=== PATIENT | female | born 1970 | race Two or more races ===

== ENCOUNTER 2019-07-17 11:10 | Day surgery (SDC) | payer OTHER ==
[~2019-07-17 11:10] MED LIST: ATENOLOL25 MG PO; AZILECT1 MG PO; CARDIDOPA PO; EFEXOR PO; SYNTH PO
== END 2019-07-17 18:15 | disposition home or self-care (01) ==
LOC: CIR.AMB 11:10
DX: M75.112 Incomplete rotator cuff tear or rupture of left shoulder, not specified as traumatic (principal); M75.42 Impingement syndrome of left shoulder; M13.812 Other specified arthritis, left shoulder